=== PATIENT | female | born 1960 | race Caucasian/White ===

== ENCOUNTER 2016-05-25 08:36 | Emergency (ER) | payer BC ==
--- NOTE | 2016-05-25 09:00 | UC ---
Respiratory Complaint HPI - HPI Summary HPI Summary: chest congestion and cough x 4 days no fever, no chills, + nasal congestion , no sore throat - History of Current Complaint Chief Complaint: UCRespiratory Stated Complaint: RESPIRATORY COMPLAINT Time Seen by Provider: 05/25/16 08:53 Hx Obtained From: Patient Hx Last Menstrual Period: JAN 2016, HAD THE NOVASURE PROCEDURE Onset/Duration: Gradual Onset, Lasting Days - 4, Still Present Timing: Constant Severity Initially: Moderate Severity Currently: Moderate Character: Cough: Nonproductive Aggravating Factors: Exertion, Deep Breaths Associated Signs And Symptoms: Positive: URI, Nasal Congestion. Negative: Dyspnea, Fever, Chills, Wheezing - Allergies/Home Medications Allergies/Adverse Reactions: Allergies Allergy/AdvReac Type Severity Reaction Status Date / Time adrenaline Allergy Hives Uncoded 05/25/16 08:43 Home Medications: Home Medications [id number] ER TAB [Mucinex*] 600 mg PO BID PRN 05/25/16 [History Confirmed 01/31] PMH/Surg Hx/FS Hx/Imm Hx Endocrine History Of: Denies: Diabetes, Thyroid Disease, Hyperthyroidism, Hypothyroidism, Dyslipidemia Cardiovascular History Of: Denies: Cardiac Disorders, Hypertension, Pacemaker/ICD, Myocardial Infarction , Congestive Heart Failure, Atrial Fibrillation, Deep Vein Thrombosis, Bleeding Disorders Respiratory History Of: Reports: Asthma - No Rx taken regularly. Denies: COPD, Bronchitis, Pneumonia, Pulmonary Embolism GI/ History Of: Denies: Gastroesophageal Reflux, Ulcer, Gastrointestinal Bleed, Gall Bladder Disease, Kidney Stones, Diverticulitis, Renal Disease, Urosepsis Neurological History Of: Denies: TIA, CVA, Dementia, Seizures, Migraine Psychological History Of: Denies: Anxiety, Depression, Bipolar Disorder, Schizophrenia, Post Traumatic Stress Disorder Cancer History Of: Denies: Lung Cancer, Colorectal Cancer, Breast Cancer, Prostate Cancer, Cervical Cancer Other History Of: Negative For: HIV, Hepatitis B, Hepatitis C, Anticoagulant Therapy - Surgical History Surgical History: Yes Surgery Procedure, Year, and Place: [facility] - Family History Known Family History: Positive: Cardiac Disease Negative: Hypertension, Diabetes - Social History Alcohol Use: Occasionally Substance Use Type: None Smoking Status (MU): Never Smoked Tobacco - Immunization History Most Recent Influenza Vaccination: DEC 2015 Review of Systems Constitutional: Negative Skin: Negative Eyes: Negative ENT: Nasal Discharge Respiratory: Cough Cardiovascular: Negative Gastrointestinal: Negative Genitourinary: Negative All Other Systems Reviewed And Are Negative: Yes Physical Exam Triage Information Reviewed: Yes Appearance: Well-Appearing, No Pain Distress, Well-Nourished Vital Signs: Initial Vital Signs Temp 97.8 F 05/25/16 08:44 Pulse 82 05/25/16 08:44 Resp 16 05/25/16 08:44 BP 126/71 05/25/16 08:44 Pulse Ox 98 05/25/16 08:44 Vital Signs Reviewed: Yes Eye Exam: Normal Eyes: Positive: Conjunctiva Clear ENT: Positive: Hearing grossly normal, Pharynx normal, Nasal congestion, Nasal drainage, TMs normal. Negative: Pharyngeal erythema Neck: Positive: Supple, Nontender, No Lymphadenopathy Respiratory Exam: Normal Respiratory: Positive: Chest non-tender, Lungs clear, Normal breath sounds Cardiovascular: Positive: RRR, No Murmur, Pulses Normal Abdominal Exam: Normal Skin Exam: Other UC Diagnostic Evaluation - Laboratory O2 Sat by Pulse Oximetry: 98 Respiratory Course/Dx - Differential Dx/Diagnosis Provider Diagnoses: URI Discharge - Discharge Plan Condition: Stable Disposition: HOME Patient Education Materials: Upper Respiratory Infection (ED) Referrals: Figueroa Mcnally DO [Primary Care Provider] - If Needed Additional Instructions: viral illness no need for abx at this time cont. with rest, increase fluid , follow up with your pcp as needed
[2016-05-25 09:02] VITALS: BP 126/71
== END 2016-05-25 09:04 | disposition home or self-care (01) ==
LOC: UCCORT 08:36
DX: J06.9 Acute upper respiratory infection, unspecified (principal); J45.909 Unspecified asthma, uncomplicated
CPT/HCPCS: 99211; G0463

== ENCOUNTER 2018-07-31 21:49 | Emergency (ER) | payer BC ==
[2018-07-31 22:00] VITALS: BP 155/90
--- NOTE | 2018-07-31 22:01 | UC ---
Throat Pain/Nasal Antony HPI - HPI Summary HPI Summary: Symptoms since Friday with runny nose had congestion and cough. Patient has a history of asthma however she states she does not use her nebulizer or inhaler very regularly. No fever. - History of Current Complaint Stated Complaint: SINUS COMPLAINT Time Seen by Provider: 07/31/18 21:51 Hx Obtained From: Patient Hx Last Menstrual Period: JAN 2016, HAD THE NOVASURE PROCEDURE ?: No Onset/Duration: Gradual Onset Severity: Mild Associated Signs & Symptoms: Positive: Negative - Allergies/Home Medications Allergies/Adverse Reactions: Allergies Allergy/AdvReac Type Severity Reaction Status Date / Time adrenaline Allergy Hives Uncoded 07/31/18 21:54 PMH/Surg Hx/FS Hx/Imm Hx Previously Healthy: Yes Respiratory History: Asthma Other History Of: Negative For: HIV, Hepatitis B, Hepatitis C, Anticoagulant Therapy - Surgical History Surgical History: Yes Surgery Procedure, Year, and Place: [facility] - Family History Known Family History: Positive: Cardiac Disease Negative: Hypertension, Diabetes - Social History Alcohol Use: Occasionally Substance Use Type: None Smoking Status (MU): Never Smoked Tobacco - Immunization History Most Recent Influenza Vaccination: DEC 2015 Review of Systems All Other Systems Reviewed And Are Negative: Yes ENT: Positive: Nasal Discharge, Sinus Congestion Respiratory: Positive: Cough - Tight cough Is Patient Immunocompromised?: No Physical Exam Triage Information Reviewed: Yes Appearance: Well-Appearing, No Pain Distress, Well-Nourished Vital Signs Reviewed: Yes Eyes: Positive: Conjunctiva Clear ENT: Positive: Pharynx normal, Nasal drainage - Clear nasal coryza, TMs normal, Uvula midline Neck: Positive: Supple, Nontender, No Lymphadenopathy Respiratory: Positive: No respiratory distress, No accessory muscle use - . Mild wheezing with forced expiration but good air movement. Tight cough. Cardiovascular: Positive: No Murmur, Brisk Capillary Refill, Tachycardia Musculoskeletal Exam: Normal Neurological Exam: Normal Psychological Exam: Normal Skin Exam: Normal Throat Pain/Nasal Course/Dx - Course Course Of Treatment: Patient has an nebulizer at home and so I urged her to do an nebulizer treatment when she is home, she was given prednisone 60 mg by mouth here and I will do a tapering dose. She is to follow-up with her primary care provider if no improvement in 3 or 4 days. - Differential Dx/Diagnosis Provider Diagnosis: Bronchitis Discharge - Sign-Out/Discharge Documenting (check all that apply): Patient Departure All imaging exams completed and their final reports reviewed: No Studies - Discharge Plan Condition: Fair Disposition: HOME Prescriptions: predniSONE [Prednisone 20 MG TAB] 20 mg PO DAILY 8 Days #15 tablet Patient Education Materials: Acute Bronchitis (ED) Referrals: Figueroa Mcnally DO [Medical Doctor] - Additional Instructions: Increase fluids, take the prednisone with food, use your nebulizer treatments 1 treatment every 4 hours as needed for wheezing or tight cough. Definite follow- up with your primary care provider on Friday or Friday if no improvement. - Billing Disposition and Condition Condition: FAIR Disposition: Home - Attestation Statements Provider Attestation: I did not exam this patient. I was available for consult.
[2018-07-31] MEDS ORDERED: predniSONE TAB* 20 MG PO ONE (22:03)
== END 2018-07-31 22:09 | disposition home or self-care (01) ==
LOC: UCCORT 21:49
DX: J40 Bronchitis, not specified as acute or chronic (principal); Z88.8 Allergy status to other drugs, medicaments and biological substances
CPT/HCPCS: 99212; G0463; J7512